=== PATIENT | female | born 1970 | race American Indian/Alaskan Native ===

== ENCOUNTER 2017-03-15 15:06 | Outpatient (CLI) | payer BC ==
--- NOTE | 2017-03-16 08:49 | Ultrasound Report ---
TRANSABDOMINAL AND TRANSVAGINAL PELVIC ULTRASOUND: 03/15/17 15:06:00 CLINICAL: Dysmenorrhea. Heavy menses. FINDINGS: Transabdominal and transvaginal pelvic ultrasound demonstrated normal size uterus measuring 11.9 x 0.1 x 4.6The endometrium is thickened and measures 13.0 mm AP thickness. There is suggestion of an endometrial polyp or a submucosal fibroid measuring 2.6 x 0.8 x 2.0 cm. The myometrium is normal. A 1.9 cm cyst of the right ovary. The right ovary measures 4.0 x 2.7 x 3.3cm. Normal left ovary. The left ovary measures 3.6 x 1.8 x 2.9cm. No adnexal mass. No free fluid. Normal urinary bladder. IMPRESSION: 1. A 2.6 cm endometrial polyp versus a mucosal fibroid. 2. Normal ovaries with a dominant 1.9 cm follicle of the right ovary.
--- NOTE | 2017-03-16 08:52 | Ultrasound Report ---
TRANSABDOMINAL AND TRANSVAGINAL PELVIC ULTRASOUND: 03/15/17 15:06:00 CLINICAL: Dysmenorrhea. Heavy menses. FINDINGS: Transabdominal and transvaginal pelvic ultrasound demonstrated normal size uterus measuring 11.9 x 0.1 x 4.6.The endometrium is thickened and measures 13.0 mm AP thickness. There is suggestion of an endometrial polyp or a submucosal fibroid measuring 2.6 x 0.8 x 2.0 cm. The myometrium is normal. A 1.9 cm cyst of the right ovary. The right ovary measures 4.0 x 2.7 x 3.3 cm. Normal left ovary. The left ovary measures 3.6 x 1.8 x 2.9 cm. No adnexal mass. No free fluid. Normal urinary bladder. IMPRESSION: 1. A 2.6 cm endometrial polyp versus a mucosal fibroid. 2. Normal ovaries with a dominant 1.9 cm follicle of the right ovary.
--- NOTE | 2017-03-16 09:04 | Mammography Report ---
BILATERAL DIGITAL SCREENING MAMMOGRAM with CAD: 03/15/17 15:06:00 CLINICAL: Routine screening. COMPARISON:03/04/14 FINDINGS: The breasts are almost entirely fatty. No mass, architectural distortion or suspicious calcifications. IMPRESSION: No mammographic evidence of malignancy. BI-RADS CATEGORY: 1 - - Negative RECOMMENDATION: Routine mammographic screening in one year. COMMENT: Patient follow-up letters are generated by our [employer] application.
== END 2017-03-15 15:07 | disposition home or self-care (01) ==
LOC: SPVWC 15:06
PROVIDERS: ATTEND Family Medicine Adult Medicine
DX: Z12.31 Encounter for screening mammogram for malignant neoplasm of breast (principal); N83.201 Unspecified ovarian cyst, right side
CPT/HCPCS: 76830; 76856; G0202; 77067